=== PATIENT | male | born 1995 | race Caucasian/White ===

== ENCOUNTER → 2018-01-15 12:27 | Outpatient (POV) | payer BC, MEDICAID, SELFPAY | PROVIDERS: Family Provider Internal Medicine Adolescent Medicine; PCP Internal Medicine Adolescent Medicine; Visit Provider Nurse Practitioner Acute Care | DX: Z00.00 Encounter for general adult medical examination without abnormal findings (principal) ==

== ENCOUNTER → 2018-08-31 08:58 | Outpatient (CLI) | payer BC, MEDICAID, SELFPAY ==
[2018-08-31 09:52] LABS: Basophils % 0.5 % (0.1-2.0); Eosinophils # 0.3 K/mm3 (0.0-0.4); Eosinophils % 3.4 % (0.1-12.0); Hematocrit 45.2 % (42.0-52.0); Hemoglobin 14.1 g/dL (14.1-18.0); Lymphocytes # 1.7 K/mm3 (0.7-4.5); Lymphocytes % 22.2 % (10-50); Mean Corpuscular HGB Conc 31.3 g/dL (31.8-35.4); Mean Corpuscular Hemoglobin 28.8 pg (27.0-31.2); Mean Corpuscular Volume 92.1 fl (80-94); Monocytes # 0.4 K/mm3 (0.1-1.0); Monocytes % 5.2 % (1.7-9.3); Neutrophils # 5.4 K/mm3 (1.8-7.8); Neutrophils % 68.8 % (37.0-80.0); Platelet Count 261 K/mm3 (142-424); Red Cell Distribution Width 12.9 % (11.5-17.5); White Blood Count 7.8 K/mm3 (4.8-10.8)
[2018-08-31 11:26] LABS: Alanine Aminotransferase 54 U/L (12-78); Albumin Level 3.9 gm/dL (3.4-5.0); Albumin/Globulin Ratio 1.1 (1.1-1.8); Alkaline Phosphatase 88 U/L (46-116); Anion Gap 14.1 mEq/L (5-15); Aspartate Amino Transferase 19 U/L (15-37); Bilirubin,Total 0.2 mg/dL (0.2-1.0); Blood Urea Nitrogen 16 mg/dL (7-18); Calcium 10.8 mg/dL (8.5-10.1); Carbon Dioxide 26 mmol/L (21.0-32.0); Chloride 102 mmol/L (98-107); Creatinine,Serum 0.93 mg/dL (0.70-1.30); Estimated Glomerular Filt Rate 103 ml/min (>60); GFR (African American) 124 ML/MIN (>60); Globulin 3.4 gm/dl (1.3-3.2); Glucose 99 mg/dL (74-106); Potassium 4.1 mmoL/L (3.5-5.1); Sodium 138 mmol/L (136-145); Thyroid Stimulating Hormone 4.06 uIU/ml (0.358-3.740); Total Protein,Serum 7.3 gm/dL (6.4-8.2)
[2018-09-03 11:15] LABS: Lithium (Eskalith(R)) 0.7 mmol/L (0.6-1.2)
[2018-09-04 09:58] LABS: Testosterone, Total, LC/MS 279.2 ng/dL (264.0-916.0); Testosterone,Free 7.3 pg/mL (9.3-26.5)
== END ==
PROVIDERS: Nurse Practitioner Psychiatric/Mental Health; PCP Internal Medicine Adolescent Medicine; Visit Provider Nurse Practitioner Psychiatric/Mental Health
DX: F31.9 Bipolar disorder, unspecified (principal)
CPT/HCPCS: 36415; 80053; 80178; 84402; 84403; 84443; 85025

== ENCOUNTER → 2019-08-27 12:43 | Outpatient (CLI) | payer BC, SELFPAY ==
[2019-08-27 16:34] LABS: Alanine Aminotransferase 45 U/L (12-78); Albumin Level 4.2 gm/dL (3.4-5.0); Albumin/Globulin Ratio 1.2 (1.1-1.8); Alkaline Phosphatase 85 U/L (46-116); Aspartate Amino Transferase 21 U/L (15-37); Bilirubin,Total 0.4 mg/dL (0.2-1.0); Blood Urea Nitrogen 11 mg/dL (7-18); Calcium 9.2 mg/dL (8.5-10.1); Carbon Dioxide 26 mmol/L (21.0-32.0); Chloride 103 mmol/L (98-107); Creatinine,Serum 1.09 mg/dL (0.70-1.30); Estimated Glomerular Filt Rate 85 ml/min (>60); GFR (African American) 102 ML/MIN (>60); Globulin 3.4 gm/dl (1.3-3.2); Glucose 107 mg/dL (74-106); Sodium 139 mmol/L (136-145); Thyroid Stimulating Hormone 3.63 uIU/ml (0.358-3.740); Total Protein,Serum 7.6 gm/dL (6.4-8.2)
[2019-08-28 12:21] LABS: Lithium (Eskalith(R)) 0.8 mmol/L (0.6-1.2)
[2019-08-29 08:12] LABS: Testosterone,Free 7.4 pg/mL (9.3-26.5)
[2019-08-29 13:20] LABS: Testosterone, Total, LC/MS 189.5 ng/dL (264.0-916.0)
== END ==
PROVIDERS: Visit Provider Nurse Practitioner Psychiatric/Mental Health
DX: Z00.00 Encounter for general adult medical examination without abnormal findings (principal); F31.70 Bipolar disorder, currently in remission, most recent episode unspecified; R53.83 Other fatigue
CPT/HCPCS: 36415; 80053; 80178; 84402; 84403; 84443

== ENCOUNTER → 2019-08-27 13:38 | Outpatient (POV) | payer BC, SELFPAY | PROVIDERS: Visit Provider Dermatology | DX: Z00.00 Encounter for general adult medical examination without abnormal findings (principal) ==

== ENCOUNTER → 2019-10-22 14:04 | Outpatient (POV) | payer BC, SELFPAY | PROVIDERS: Visit Provider Dermatology | DX: Z00.00 Encounter for general adult medical examination without abnormal findings (principal) ==

== ENCOUNTER 2020-05-10 00:54 | Emergency (ER) | payer BC, SELFPAY ==
[2020-05-10 01:04] VITALS: BP 142/91; PULSE 93; RESP 20; TEMP 37.4; O2SAT 100; BMI 37.3
--- NOTE | 2020-05-10 01:16 | XR_ITS ---
PROCEDURE: XR CHEST 2V CLINICAL HISTORY: chest pain COMPARISON: No exams were available for comparison FINDINGS: The cardiomediastinal silhouette and pulmonary vascularity are within normal limits. The lungs are clear without infiltrates, suspicious nodules, or pleural effusions. No acute bony abnormalities. IMPRESSION: No acute findings. Dictated by: Dr. Tyler Ahuja MD 05/10/2020 07:[address] Tyler Ahuja MD in [place] 05/10/2020 07:49
--- NOTE | 2020-05-10 01:16 | ECG_ITS ---
APPROVED REPORT Exam: Resting ECG HR:85 bpm ECG Measurements Heart Rate [address] 176 P 40 QRSd 100 QRS 60 QT 356 T 34 QTc 423 <Conclusion> Normal sinus rhythm Possible Left atrial enlargement Borderline ECG Electronically signed by : Cody Tellez, 05/11/2020 09:07:47
[2020-05-10 01:25] LABS: Basophils # 0.1 K/mm3 (0-0.2); Basophils % 0.6 % (0.1-2.0); Eosinophils # 0.3 K/mm3 (0.0-0.4); Eosinophils % 2.4 % (0.1-12.0); Hematocrit 44.4 % (42.0-52.0); Hemoglobin 14.9 g/dL (14.1-18.0); Lymphocytes # 3.1 K/mm3 (0.7-4.5); Lymphocytes % 29.5 % (10-50); Mean Corpuscular HGB Conc 33.5 g/dL (31.8-35.4); Mean Corpuscular Hemoglobin 31.3 pg (27.0-31.2); Mean Corpuscular Volume 93.4 fl (80-94); Mean Platelet Volume 7.4 fl (7.4-10.4); Monocytes # 0.5 K/mm3 (0.1-1.0); Monocytes % 4.9 % (1.7-9.3); Neutrophils # 6.6 K/mm3 (1.8-7.8); Neutrophils % 62.7 % (37.0-80.0); Platelet Count 261 K/mm3 (142-424); Red Blood Count 4.75 M/mm3 (4.60-6.20); White Blood Count 10.5 K/mm3 (4.8-10.8)
[2020-05-10 01:29] VITALS: BP 138/87; PULSE 82; RESP 18; O2SAT 100
[2020-05-10 01:30] LABS: Alanine Aminotransferase 47 U/L (12-78); Albumin Level 4.6 g/dl (3.5-5.0); Alkaline Phosphatase 76 U/L (38-126); Anion Gap 14.7 mEq/L (5-15); Aspartate Amino Transferase 37 U/L (17-59); Bilirubin,Direct 0.1 mg/dl (0.0-0.4); Bilirubin,Indirect 0.1 mg/dL (0.0-0.9); Bilirubin,Total 0.2 mg/dl (0.2-1.3); Bilirubin,Unconjugated 0.2 mg/dL (0.0-1.1); Blood Urea Nitrogen 15 mg/dl (9-20); Calcium 9.9 mg/dl (8.4-10.2); Carbon Dioxide 28 mmol/L (22.0-30.0); Chloride 103 mmol/L (98-107); Creatinine Clearance Estimated 203 mL/min (50-200); Estimated Glomerular Filt Rate 93 ml/min (>60); GFR (African American) 112 ML/MIN (>60); Glucose 110 mg/dl (74-100); Potassium 3.7 mmoL/L (3.5-5.1); Sodium 142 mmol/L (136-145); Total Protein,Serum 8.1 g/dl (6.3-8.2)
--- NOTE | 2020-05-10 01:30 | HMH.EDCP ---
ED Disposition Clinical Impression: Atypical chest pain Disposition: Home, Self-Care Condition on Discharge: Good Instructions: DI for Atypical Chest Pain Additional Instructions: will do holter and ask pt to see pcp for follow up Referrals: Olaf Hernandez MD [Primary Care Provider] - - Critical Care Critical Care Time: No Attestation: On 05/10/20, the high probability of a clinically significant, sudden or life threatening deterioration of the following system(s) required my full and direct attention, intervention and personal management. The time I documented below is in addition to time spent performing reported procedures but includes the following listed in this critical care notation. Medical Decision Making - Medical Records Medical records reviewed: Yes: I reviewed the patient's medical records. - Gerard Inquiry Pt receiving controlled substance: No Vital Signs: 05/10/20 01:04 05/10/20 01:29 Temperature 99.4 F Temperature Source Oral Pulse Rate [Right] 93 H 82 Respiratory Rate 20 18 Blood Pressure [Right Arm] 142/91 H 138/87 Blood Pressure Mean [Right Arm] 108 104 Blood Pressure Source [Right Arm] Automatic Cuff Blood Pressure Position [Right Arm] Supine 02 Sat by Pulse Oximetry 100 100 Oxygen Delivery Method Room Air Room Air - Lab Data Lab results reviewed: Yes: I reviewed the patient's lab results. Lab Results 05/10/20 01:13: WBC 10.5, RBC 4.75, Hgb 14.9, Hct 44.4, MCV 93.4, MCH 31.3 H, MCHC 33.5, RDW 13.0, Plt Count 261, MPV 7.4, Neut % (Auto) 62.7, Lymph % (Auto) 29.5, [place] % (Auto) 4.9, Eos % (Auto) 2.4, Baso % (Auto) 0.6, Neut # (Auto) 6.6, Lymph # (Auto) 3.1, [place] # (Auto) 0.5, Eos # (Auto) 0.3, Baso # (Auto) 0.1 05/10/20 01:13: Sodium 142, Potassium 3.7, Chloride 103, Carbon Dioxide 28, Anion Gap 14.7, BUN 15, Creatinine 1.00, Estimated Creat Clear 203, Estimated GFR 93, Est GFR ( Amer) 112, Glucose 110 H, Calcium 9.9, Total Bilirubin 0.2, Direct Bilirubin 0.1, Conjugated Bilirubin 0.0, Indirect Bilirubin 0.1, Unconjugated Bilirubin 0.2, AST 37, ALT 47, Alkaline Phosphatase 76, Troponin I < 0.01, Total Protein 8.1, Albumin 4.6, Thyroxine (T4) 8.3 Result diagrams: 05/10/20 01:13 05/10/20 01:13 Orders (Tests/Meds): ED MEDICATIONS Generic Name Dose Route Start Last Admin Trade Name Freq PRN Reason Stop Dose Admin Sodium Chloride 1,000 mls @ 999 mls/hr 05/10/20 01:30 05/10/20 01:19 Sod Chlor 0.9% 1000ml Bag IV 05/10/20 02:30 999 mls/hr .Q1H1M AMANDO Administration Discontinued Medications Generic Name Dose Route Start Last Admin Trade Name Freq PRN Reason Stop Dose Admin Aspirin 324 mg 05/10/20 01:16 05/10/20 01:19 Aspirin 81mg Chewable Tablet PO 05/10/20 01:17 324 mg ONCE ONE Administration ORDERS Category Date Time Status XR chest 2V Stat Exams 05/10/20 01:16 Taken Basic Metabolic Panel Stat Lab 05/10/20 01:13 Results Liver Panel Stat Lab 05/10/20 01:13 Results T4 (Thyroxine) Stat Lab 05/10/20 01:13 Results Thyroid Stimulating Hormone Stat Lab 05/10/20 01:13 Results Troponin I Q3H Lab 05/10/20 04:30 Ordered Troponin I Q3H Lab 05/10/20 07:30 Ordered Troponin I Stat Lab 05/10/20 01:13 Results - Radiology Data #1 Image(s): Chest Image Reviewed: Yes I reviewed the patient's radiology image Preliminary Findings: Normal/NAD - ECG Data Tracing #1 Normal Sinus Rhythm: Yes Ischemic changes: non-specific ST-T wave changes Chest Pain HPI - General Chief Complaint: Chest Pain Stated Complaint: Heart Racing,HighBP; Time Seen by Provider: 05/10/20 01:15 Mode of Arrival: Ambulatory Source of Information: Patient, Medical Record Limitations: No Limitations Description of Symptoms (Recalled from ER Triage Doc. by RN): Pt states he has had on and off chest pain with diaphoresis, states he felt heart palpatations today as well. - History of Present Illness HPI narrative: ant chest pain with diaphoresi
[2020-05-10 01:43] LABS: Troponin I < 0.01 ng/ml (0.00-0.034)
[2020-05-10 01:47] LABS: T4 (Thyroxine) 8.3 ug/dl (5.53-11.0)
[2020-05-10 02:00] VITALS: BP 134/86; PULSE 87; RESP 16; O2SAT 100
[2020-05-10 02:01] LABS: Thyroid Stimulating Hormone 2.09 uIU/mL (0.465-4.68)
[2020-05-10 02:30] VITALS: BP 146/84; PULSE 92; RESP 14; TEMP 37.4; O2SAT 99
[2020-05-12 05:39] LABS: Lithium (Eskalith(R)) 0.8 mmol/L (0.6-1.2)
== END 2020-05-10 02:34 | disposition home or self-care (01) ==
PROVIDERS: Emergency Provider Emergency Medicine; PCP Internal Medicine Adolescent Medicine
DX: R07.89 Other chest pain (principal); I10 Essential (primary) hypertension; F31.9 Bipolar disorder, unspecified; Z79.899 Other long term (current) drug therapy
CPT/HCPCS: 71046; 80048; 80076; 80178; 84436; 84443; 84484; 85025; 93005; 96365; 99284

== ENCOUNTER → 2020-08-24 08:11 | Outpatient (CLI) | payer BC, SELFPAY ==
[2020-08-24 08:42] LABS: Basophils # 0.1 K/mm3 (0-0.2); Basophils % 0.5 % (0.1-2.0); Eosinophils # 0.3 K/mm3 (0.0-0.4); Eosinophils % 2.9 % (0.1-12.0); Hematocrit 48.9 % (42.0-52.0); Hemoglobin 15.9 g/dL (14.1-18.0); Lymphocytes # 3.1 K/mm3 (0.7-4.5); Lymphocytes % 32.9 % (10-50); Mean Corpuscular HGB Conc 32.5 g/dL (31.8-35.4); Mean Corpuscular Hemoglobin 30.9 pg (27.0-31.2); Monocytes # 0.4 K/mm3 (0.1-1.0); Monocytes % 4.1 % (1.7-9.3); Neutrophils # 5.6 K/mm3 (1.8-7.8); Neutrophils % 59.5 % (37.0-80.0); Platelet Count 275 K/mm3 (142-424); Red Blood Count 5.15 M/mm3 (4.60-6.20); Red Cell Distribution Width 13.1 % (11.5-17.5); White Blood Count 9.5 K/mm3 (4.8-10.8)
[2020-08-24 09:09] LABS: Chloride 102 mmol/L (98-107)
[2020-08-24 09:10] LABS: Potassium 4.5 mmoL/L (3.5-5.1); Sodium 140 mmol/L (136-145)
[2020-08-24 09:12] LABS: Alanine Aminotransferase 40 U/L (12-78); Albumin Level 4.7 g/dl (3.5-5.0); Albumin/Globulin Ratio 1.6 (1.1-1.8); Alkaline Phosphatase 58 U/L (38-126); Anion Gap 10.5 mEq/L (5-15); Aspartate Amino Transferase 32 U/L (17-59); Bilirubin,Total 0.3 mg/dl (0.2-1.3); Blood Urea Nitrogen 15 mg/dl (9-20); Carbon Dioxide 32 mmol/L (22.0-30.0); Cholesterol 201 mg/dl (140-200); Estimated Glomerular Filt Rate 105 ml/min (>60); GFR (African American) 127 ML/MIN (>60); Globulin 2.9 g/dL (1.3-3.2); Total Protein,Serum 7.6 g/dl (6.3-8.2); Triglycerides 175 mg/dl (30-150); VLDL Cholesterol 35 mg/dL (0-40)
[2020-08-24 09:13] LABS: Calcium 9.9 mg/dl (8.4-10.2); Glucose 122 mg/dl (74-100); HDL Cholesterol 40 mg/dl (40-60)
[2020-08-24 09:24] LABS: Direct LDL Cholesterol 130.86 mg/dL (100-129); Hemoglobin A1C 5.3 % (4.0-6.0)
[2020-08-24 10:02] LABS: Vitamin B12 837 pg/mL (239-931)
[2020-08-26 10:47] LABS: Lithium (Eskalith(R)) 0.8 mmol/L (0.6-1.2)
[2020-08-29 22:28] LABS: Testosterone, Total, LC/MS 190.7 ng/dL (264.0-916.0)
[2020-09-05 20:29] LABS: 1,25-Dihydroxy, Vitamin D-2 <10; 1,25-Dihydroxy, Vitamin D-3 53
== END ==
PROVIDERS: Visit Provider Nurse Practitioner Psychiatric/Mental Health
DX: E29.1 Testicular hypofunction (principal); Z00.00 Encounter for general adult medical examination without abnormal findings; F31.9 Bipolar disorder, unspecified; R53.83 Other fatigue; Z79.899 Other long term (current) drug therapy
CPT/HCPCS: 36415; 80053; 80061; 80178; 82607; 82652; 83036; 84402; 84403; 84443; 85025

== ENCOUNTER 2021-04-24 16:43 | Emergency (ER) | payer BC, SELFPAY ==
[2021-04-24 16:45] VITALS: BP 146/83; PULSE 103; RESP 20; TEMP 37.3; O2SAT 100; BMI 37.3
--- NOTE | 2021-04-24 17:09 | HMH.EDUTC ---
[facility] [place] Clinical Impression: Rash Disposition: Home, Self-Care Condition on Discharge: Good Instructions: DI for Rash Additional Instructions: No sign of a bacterial infection. Likely viral. Viruses can take 7-14 days to run their course. Monitor temp. Tylenol or Motrin as needed for pain or fever Encourage fluids, water, Gatorade, Powerade, Pedialyte if infant/toddler/child Your covid swab and strep swab was sent to lab. call for results later this evening on covid 24 hours on strep Follow-up immediately for new or worsening symptoms or no noticeable improvement over the next 48-72 hours. Prescriptions: predniSONE [Prednisone 20mg Tab] 20 mg PO BID #10 tab Transmission Status: Pending to [facility] #[id number] Referrals: Olaf Hernandez MD [Primary Care Provider] - Time of Disposition: 17:23 Medical Decision Making - Gerard Inquiry Pt receiving controlled substance: No Vital Signs: 04/24/21 16:45 Temperature 99.2 F Temperature Source Oral Pulse Rate [Left Brachial] 103 H Respiratory Rate 20 Blood Pressure [Left Arm] 146/83 H Blood Pressure Mean [Left Arm] 104 Blood Pressure Source [Left Arm] Automatic Cuff Blood Pressure Position [Left Arm] Sitting 02 Sat by Pulse Oximetry 100 Oxygen Delivery Method Room Air [facility] - General Chief complaint: Urgent [facility] Stated complaint: rash covering body Time Seen by Provider: 04/24/21 17:09 Mode of Arrival: Ambulatory Source of Information: Patient Limitations: No Limitations Description of Symptoms (Recalled from Triage Doc. by RN): PATIENT C/O RASH TO TORSO, BACK, BILATERAL ARMS AND UPPER LEGS X 1 WEEK. RASH DOES NOT ITCH OR BURN. DENIES ANY OTHER SYMPTOMS HEENT Symptoms (Recalled from RN notes): No Resp Symptoms (Recalled from RN notes): No Skin Symptoms (Recalled from RN notes): Yes MS Symptoms (Recalled from RN notes): No Functional Status (Recalled from RN notes): WNL - History of Present Illness Provider Complaint: 25 yr old male presents for reash to torso,back, juan upper arms,and upper legs for 1 week. pt states it does not itch or burn. pt denies any new meds or soaps. no new contacts known. pt denies any other symptom - Related Data Previous Rx's Medication Instructions Recorded cariprazine 6 mg capsule 6 mg PO DAILY #30 cap 02/01/21 lithium carbonate 300 mg 300 mg PO .COMPLEX #150 tab 02/01/21 tablet,extended release memantine 10 mg tablet 10 mg PO BID #60 tab 02/01/21 ziprasidone HCl 80 mg capsule 80 mg PO QPM #30 cap 02/01/21 predniSONE [Prednisone 20mg 20 mg PO BID #10 tab 04/24/21 Tab] Allergies Allergy/AdvReac Type Severity Reaction Status Date / Time No Known Allergies Allergy Verified 04/24/21 17:08 - Worker's Comp Is this a Worker's Comp case?: No [facility] History - Hepatitis A Screen Drug use history?: No High risk sexual behaviors?: No History of sexually transmitted infection?: No Currently employed?: No Childcare worker?: No Do you have indoor plumbing?: Yes Do you have electricity?: Yes Attestation statement:: This patient has been screened for Hepatitis A risk factors. I have reviewed the patient's past medical history: Yes 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: Reports:: Hypertension Denies:: Diabetes Mellitus Type 1, Diabetes Mellitus Type 2 Laterality Cases: Right: Arthroscopy Shoulder Amputation: No Fractures: No - Social History Smoking Status: Never smoker Alcohol Intake: never Occupational Status: other Family Hx:: Hypertension ROS Obtained: Yes Systems reviewed as appropriate & no additional complaints - Constitutional Constitutional: Reports system reviewed and no additional complaints, except as docu, Denies body ache, Denies fever(s) - Eyes Eyes: Reports system reviewed and no additional complaints, except as docu, Denies dry eyes - ENT Ears, Nose, Mouth, and Throat: Reports system reviewed and no additional complaints, except as docu, Denies facial pain, Kingsley
[2021-04-24 17:12] LABS: UTC Strep Screen (Rapid) Negative (Negative)
[2021-04-24 17:13] VITALS: BP 146/83; PULSE 103; RESP 20; TEMP 37.3; O2SAT 100
== END 2021-04-24 17:20 | disposition home or self-care (01) ==
PROVIDERS: Emergency Provider Nurse Practitioner Family; PCP Internal Medicine Adolescent Medicine
DX: R21 Rash and other nonspecific skin eruption (principal)
CPT/HCPCS: 87880; 99202; G0463; U0003

== ENCOUNTER → 2021-08-10 09:41 | Outpatient (CLI) | payer BC, SELFPAY ==
[2021-08-10 10:32] LABS: Hemoglobin A1C 6.9 % (4.0-6.0)
[2021-08-10 11:17] LABS: Alanine Aminotransferase 70 U/L (12-78); Albumin Level 4.5 g/dl (3.5-5.0); Albumin/Globulin Ratio 1.5 (1.1-1.8); Alkaline Phosphatase 73 U/L (38-126); Anion Gap 14.4 mEq/L (5-15); Aspartate Amino Transferase 45 U/L (17-59); Bilirubin,Total 0.5 mg/dl (0.2-1.3); Blood Urea Nitrogen 11 mg/dl (9-20); Calcium 10.4 mg/dl (8.4-10.2); Carbon Dioxide 30 mmol/L (22.0-30.0); Chloride 102 mmol/L (98-107); Estimated Glomerular Filt Rate 119 ml/min (>60); GFR (African American) 144 ML/MIN (>60); Glucose 96 mg/dl (74-100); Potassium 4.4 mmoL/L (3.5-5.1); Sodium 142 mmol/L (136-145); Total Protein,Serum 7.5 g/dl (6.3-8.2)
[2021-08-10 11:34] LABS: Free Thyroxine Index 2.4 ug/dL (5.93-13.13); T4 (Thyroxine) 8.3 ug/dl (5.53-11.0); Triiodothryronine (T3) Uptake 29 % (23.5-40.5)
[2021-08-10 11:48] LABS: Thyroid Stimulating Hormone 3.43 uIU/mL (0.465-4.68)
[2021-08-10 12:07] LABS: Vitamin B12 987 pg/mL (239-931)
[2021-08-10 18:37] LABS: Basophils # 0.2 K/mm3 (0-0.2); Basophils % 1.6 % (0.1-2.0); Eosinophils # 0.4 K/mm3 (0.0-0.4); Eosinophils % 3.3 % (0.1-12.0); Hematocrit 48.6 % (42.0-52.0); Hemoglobin 15.8 g/dL (14.1-18.0); Lymphocytes # 3.8 K/mm3 (0.7-4.5); Lymphocytes % 31.9 % (10-50); Mean Corpuscular HGB Conc 32.6 g/dL (31.8-35.4); Mean Corpuscular Hemoglobin 31.7 pg (27.0-31.2); Mean Corpuscular Volume 97.1 fl (80-94); Mean Platelet Volume 9.7 fl (7.4-10.4); Monocytes # 0.6 K/mm3 (0.1-1.0); Monocytes % 5.2 % (1.7-9.3); Neutrophils # 6.9 K/mm3 (1.8-7.8); Neutrophils % 57.9 % (37.0-80.0); Platelet Count 318 K/mm3 (142-424); Red Cell Distribution Width 13.2 % (11.5-17.5); White Blood Count 11.8 K/mm3 (4.8-10.8)
[2021-08-11 13:15] LABS: Lithium (Eskalith(R)) 0.9 mmol/L (0.5-1.2)
[2021-08-19 22:07] LABS: 1,25 Dihydroxy Vitamin D 22 pg/mL (.); 1,25-Dihydroxy, Vitamin D-2 <10 pg/mL (.); 1,25-Dihydroxy, Vitamin D-3 22 pg/mL (.)
== END ==
PROVIDERS: Visit Provider Nurse Practitioner Psychiatric/Mental Health
DX: Z00.00 Encounter for general adult medical examination without abnormal findings (principal); F31.9 Bipolar disorder, unspecified; Z79.899 Other long term (current) drug therapy
CPT/HCPCS: 36415; 80053; 80178; 82607; 82652; 83036; 84436; 84443; 84479; 85025

== ENCOUNTER → 2021-08-13 09:11 | Outpatient (CLI) | payer BC, SELFPAY ==
[2021-08-13 09:52] LABS: Basophils # 0.1 K/mm3 (0-0.2); Basophils % 0.8 % (0.1-2.0); Eosinophils # 0.4 K/mm3 (0.0-0.4); Eosinophils % 4.3 % (0.1-12.0); Hematocrit 45.7 % (42.0-52.0); Hemoglobin 15.1 g/dL (14.1-18.0); Lymphocytes # 3.2 K/mm3 (0.7-4.5); Lymphocytes % 37.8 % (10-50); Mean Corpuscular HGB Conc 32.9 g/dL (31.8-35.4); Mean Corpuscular Hemoglobin 31.6 pg (27.0-31.2); Mean Corpuscular Volume 96.1 fl (80-94); Mean Platelet Volume 8.1 fl (7.4-10.4); Monocytes # 0.4 K/mm3 (0.1-1.0); Monocytes % 5.1 % (1.7-9.3); Neutrophils # 4.5 K/mm3 (1.8-7.8); Platelet Count 313 K/mm3 (142-424); Red Blood Count 4.76 M/mm3 (4.60-6.20); Red Cell Distribution Width 13.2 % (11.5-17.5); White Blood Count 8.6 K/mm3 (4.8-10.8)
[2021-08-13 10:23] LABS: Hemoglobin A1C 5.3 % (4.0-6.0)
[2021-08-13 10:48] LABS: Chloride 103 mmol/L (98-107); Potassium 4.3 mmoL/L (3.5-5.1); Sodium 142 mmol/L (136-145)
[2021-08-13 10:51] LABS: Alanine Aminotransferase 63 U/L (12-78); Albumin Level 4.5 g/dl (3.5-5.0); Albumin/Globulin Ratio 1.7 (1.1-1.8); Alkaline Phosphatase 74 U/L (38-126); Anion Gap 16.3 mEq/L (5-15); Aspartate Amino Transferase 42 U/L (17-59); Bilirubin,Total 0.2 mg/dl (0.2-1.3); Blood Urea Nitrogen 10 mg/dl (9-20); Calcium 9.2 mg/dl (8.4-10.2); Carbon Dioxide 27 mmol/L (22.0-30.0); Chol/HDL Ratio 4.3 (1-3.5); Cholesterol 180 mg/dl (140-200); Estimated Glomerular Filt Rate 119 ml/min (>60); GFR (African American) 144 ML/MIN (>60); Globulin 2.7 g/dL (1.3-3.2); Glucose 103 mg/dl (74-100); HDL Cholesterol 42 mg/dl (40-60); Total Protein,Serum 7.2 g/dl (6.3-8.2); Triglycerides 156 mg/dl (30-150); VLDL Cholesterol 31 mg/dL (0-40)
[2021-08-13 11:05] LABS: Direct LDL Cholesterol 118.07 mg/dL (100-129)
[2021-08-13 11:30] LABS: Triiodothryronine (T3) Uptake 30 % (23.5-40.5)
[2021-08-13 11:31] LABS: Free Thyroxine Index 2.2 ug/dL (5.93-13.13); T4 (Thyroxine) 7.2 ug/dl (5.53-11.0)
[2021-08-19 13:28] LABS: Testosterone,Free 10.1 pg/mL (9.3-26.5)
== END ==
PROVIDERS: Visit Provider Internal Medicine Adolescent Medicine
DX: E29.1 Testicular hypofunction (principal); Z79.899 Other long term (current) drug therapy
CPT/HCPCS: 36415; 80053; 80061; 83036; 84402; 84403; 84436; 84443; 84479; 85025

== ENCOUNTER → 2022-02-16 09:48 | Outpatient (CLI) | payer BC, SELFPAY ==
[2022-02-16 11:04] LABS: Basophils # 0.1 K/mm3 (0-0.2); Basophils % 0.8 % (0.1-2.0); Eosinophils # 0.4 K/mm3 (0.0-0.4); Eosinophils % 3.7 % (0.1-12.0); Hematocrit 45.9 % (42.0-52.0); Lymphocytes % 19.1 % (10-50); Mean Corpuscular HGB Conc 32.7 g/dL (31.8-35.4); Mean Corpuscular Hemoglobin 32.7 pg (27.0-31.2); Mean Platelet Volume 8.1 fl (7.4-10.4); Monocytes # 0.4 K/mm3 (0.1-1.0); Monocytes % 3.6 % (1.7-9.3); Neutrophils # 7.8 K/mm3 (1.8-7.8); Neutrophils % 72.9 % (37.0-80.0); Platelet Count 323 K/mm3 (142-424); Red Blood Count 4.59 M/mm3 (4.60-6.20); Red Cell Distribution Width 13.1 % (11.5-17.5); White Blood Count 10.6 K/mm3 (4.8-10.8)
[2022-02-16 11:25] LABS: Chloride 104 mmol/L (98-107)
[2022-02-16 11:26] LABS: Potassium 4.1 mmoL/L (3.5-5.1); Sodium 139 mmol/L (136-145)
[2022-02-16 11:28] LABS: Alanine Aminotransferase 95 U/L (12-78); Alkaline Phosphatase 78 U/L (38-126); Anion Gap 7.1 mEq/L (5-15); Aspartate Amino Transferase 44 U/L (17-59); Bilirubin,Total 0.5 mg/dl (0.2-1.3); Blood Urea Nitrogen 8 mg/dl (9-20); Carbon Dioxide 32 mmol/L (22.0-30.0); Estimated Glomerular Filt Rate 91 ml/min (>60); GFR (African American) 110 ML/MIN (>60)
[2022-02-16 11:29] LABS: Albumin Level 4.2 g/dl (3.5-5.0); Albumin/Globulin Ratio 1.7 (1.1-1.8); Chol/HDL Ratio 4.7 (1-3.5); Cholesterol 160 mg/dl (140-200); Globulin 2.5 g/dL (1.3-3.2); Glucose 116 mg/dl (74-100); HDL Cholesterol 34 mg/dl (40-60); Iron 172 ug/dL (49-181); Total Protein,Serum 6.7 g/dl (6.3-8.2); Triglycerides 123 mg/dl (30-150); VLDL Cholesterol 25 mg/dL (0-40)
[2022-02-16 11:39] LABS: Total Iron Binding Capacity 258 ug/dL (261-462)
[2022-02-16 11:40] LABS: Direct LDL Cholesterol 107.55 mg/dL (100-129)
[2022-02-16 11:41] LABS: Hemoglobin A1C 5.2 % (4.0-6.0)
[2022-02-16 11:44] LABS: Free Thyroxine Index 3.3 ug/dL (5.93-13.13); T4 (Thyroxine) 10.1 ug/dl (5.53-11.0); Triiodothryronine (T3) Uptake 33 % (23.5-40.5)
[2022-02-16 11:57] LABS: Thyroid Stimulating Hormone 2.52 uIU/mL (0.465-4.68)
[2022-02-16 13:14] LABS: Vitamin B12 882 pg/mL (239-931)
[2022-02-17 12:13] LABS: Lithium (Eskalith(R)) 1.3 mmol/L (0.5-1.2)
[2022-02-23 23:23] LABS: 1,25 Dihydroxy Vitamin D 37 pg/mL (.); 1,25-Dihydroxy, Vitamin D-2 <10 pg/mL (.); 1,25-Dihydroxy, Vitamin D-3 36 pg/mL (.)
[2022-02-25 08:23] LABS: Testosterone, Total, LC/MS 291.9 ng/dL (264.0-916.0); Testosterone,Free 7.6 pg/mL (9.3-26.5)
== END ==
PROVIDERS: Visit Provider Nurse Practitioner Psychiatric/Mental Health
DX: Z00.00 Encounter for general adult medical examination without abnormal findings (principal); Z79.899 Other long term (current) drug therapy; R53.83 Other fatigue
CPT/HCPCS: 36415; 80053; 80061; 80178; 82607; 82652; 83036; 83540; 83550; 84402; 84403; 84436; 84443; 84479; 85025

== ENCOUNTER 2022-07-10 10:20 | Emergency (ER) | payer BC, SELFPAY ==
[2022-07-10 10:40] VITALS: BP 155/87; PULSE 104; RESP 22; TEMP 38.4; O2SAT 100; BMI 36.6
[2022-07-10 10:45] LABS: UTC Strep Screen (Rapid) Negative (Negative)
--- NOTE | 2022-07-10 10:54 | EXP.UTC ---
Discharge Plan Disposition Patient Disposition: Home, Self-Care Condition: Good Prescriptions Prescriptions: New promethazine-DM 6.25-15 mg/5 mL Syrup 5 ml PO Q6H PRN (Reason: Cough) Qty: 240 0RF azithromycin [Zithromax] 250 mg tablet 250 mg PO UD DOSE PK Qty: 6 0RF Rx Instructions: Take two (2) tablets today, then one (1) tablet days #2 thru #5 methylprednisolone 4 mg Tablets,Dose Pack 4 mg PO DIRECTED Qty: 21 0RF ondansetron 4 mg Tablet,Disintegrating 4 mg PO Q8H PRN (Reason: Nausea) Qty: 20 0RF No Action alprazolam [Xanax XR] 2 mg tablet extended release 24 hr 4 mg PO DAILY Qty: 60 2RF Vraylar 6 mg capsule 6 mg PO DAILY Qty: 30 2RF lithium carbonate 300 mg tablet extended release 300 mg PO .COMPLEX Qty: 90 2RF Rx Instructions: 300 mg PO take 2 tablets by mouth in the morning; and 1 tablets at bedtime; ziprasidone HCl 80 mg capsule 80 mg PO QPM Qty: 30 2RF Rx Instructions: give with food (meal/snack) triamcinolone acetonide 0.1 % cream 1 applic TOPICAL BID Qty: 30 0RF memantine [Namenda XR] 28 mg capsule,sprinkle,ER 24hr 28 mg PO DAILY Qty: 30 2RF Referrals Follow up/Referrals: Olaf Hernandez MD [Primary Care Provider] - See instructions Activity Restrictions/Add. Instructions Additional Instructions/Restrictions: Drink plenty of fluids. Take tylenol or ibuprofen for pain or fever. Take the medications as directed. Follow up with your regular doctor. GO TO THE ER FOR ANY WORSENING SYMPTOMS The cough medication (promethazine dm) will make you drowsy, so don't drive or operate heavy machinery after taking it. Clinical Impressions Clinical Impression: COVID-19, Pharyngitis Instructions Patient Instructions: Coronavirus Disease 2019, Preventing the Spread of Coronavirus Discharge Instructions Discharge ED Provider: Alok Mckeon [facility] General Stated complaint: sore throat,cough,covid positive Time Seen by Provider: 07/10/22 10:51 History of Present Illness Provider Complaint: He states that he tested positive for covid-19 4 days ago. He is here now because he has a worsening sore throat and he would like to be checked for strep throat. He still has a cough, but he states that his cough is doing better and he has no shortness of breath or chest pain. Related Data Previous Rx's Medication Instructions Recorded triamcinolone acetonide 0.1 % 1 applic topical BID #30 grams 05/08/21 topical cream alprazolam 2 mg tablet,extended 4 mg PO DAILY #60 tabs 05/09/22 release 24 hr (Xanax XR) cariprazine 6 mg capsule (Vraylar) 6 mg PO DAILY #30 caps 05/09/22 lithium carbonate 300 mg 300 mg PO .COMPLEX . #90 tabs 05/09/22 tablet,extended release ziprasidone HCl 80 mg capsule 80 mg PO QPM . #30 caps 05/09/22 memantine 28 mg capsule 28 mg PO DAILY #30 ea 06/01/22 sprinkle,extended release 24hr (Namenda XR) azithromycin 250 mg tablet 250 mg PO UD DOSE PK #6 tabs 07/10/22 (Zithromax) methylprednisolone 4 mg tablets in 4 mg PO DIRECTED #21 tabs 07/10/22 a dose pack ondansetron 4 mg disintegrating 4 mg PO Q8H PRN Nausea #20 tabs 07/10/22 tablet promethazine-DM 6.25 mg-15 mg/5 mL 5 ml PO Q6H PRN Cough #240 mL 07/10/22 oral syrup Allergies Allergy/AdvReac Type Severity Reaction Status Date / Time No Known Allergies Allergy Verified 05/09/22 09:06 [facility] 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 Anxiety Depression Hypertension Surgical History History of shoulder surgery Social History Smoking Status: Never smoker alcohol intake: never current occupational status: other Travel in the last 8 weeks: None ROS Obtained: Yes All systems reviewed & no additional complaints except as documented Constitutional Constitutional: Reports chill
[2022-07-10 11:07] VITALS: BP 155/87; PULSE 104; RESP 22; TEMP 38.4; O2SAT 100
== END 2022-07-10 11:10 | disposition home or self-care (01) ==
PROVIDERS: Emergency Provider Nurse Practitioner Family; PCP Internal Medicine Adolescent Medicine
DX: U07.1 COVID-19 (principal)
CPT/HCPCS: 87880; 99212; G0463

== ENCOUNTER → 2022-08-31 08:04 | Outpatient (CLI) | payer BC, SELFPAY ==
[2022-08-31 08:29] LABS: Basophils # 0.2 K/mm3 (0-0.2); Basophils % 1.1 % (0.1-2.0); Eosinophils # 0.3 K/mm3 (0.0-0.4); Eosinophils % 2.2 % (0.1-12.0); Hematocrit 45.6 % (42.0-52.0); Hemoglobin 14.9 g/dL (14.1-18.0); Lymphocytes # 1.9 K/mm3 (0.7-4.5); Lymphocytes % 13.2 % (10-50); Mean Corpuscular HGB Conc 32.6 g/dL (31.8-35.4); Mean Corpuscular Hemoglobin 31.9 pg (27.0-31.2); Mean Corpuscular Volume 97.8 fl (80-94); Mean Platelet Volume 8.2 fl (7.4-10.4); Monocytes # 0.5 K/mm3 (0.1-1.0); Monocytes % 3.3 % (1.7-9.3); Neutrophils # 11.5 K/mm3 (1.8-7.8); Neutrophils % 80.1 % (37.0-80.0); Platelet Count 314 K/mm3 (142-424); Red Blood Count 4.66 M/mm3 (4.60-6.20); Red Cell Distribution Width 13.8 % (11.5-17.5); White Blood Count 14.3 K/mm3 (4.8-10.8)
[2022-08-31 08:39] LABS: Hemoglobin A1C 5.1 % (4.0-6.0)
[2022-08-31 09:03] LABS: Chol/HDL Ratio 4.6 (1-3.5); Cholesterol 152 mg/dl (140-200); HDL Cholesterol 33 mg/dl (40-60); Triglycerides 105 mg/dl (30-150); VLDL Cholesterol 21 mg/dL (0-40)
[2022-08-31 09:21] LABS: Free Thyroxine Index 2.9 ug/dL (5.93-13.13); T4 (Thyroxine) 8.4 ug/dl (5.53-11.0); Triiodothryronine (T3) Uptake 34 % (23.5-40.5)
[2022-08-31 09:34] LABS: Thyroid Stimulating Hormone 1.45 uIU/mL (0.465-4.68)
[2022-08-31 09:56] LABS: Vitamin B12 938 pg/mL (239-931)
[2022-08-31 10:47] LABS: Iron 25 ug/dL (49-181)
[2022-08-31 10:56] LABS: Total Iron Binding Capacity 273 ug/dL (261-462)
[2022-09-01 08:21] LABS: Thyroid Peroxidase Antibodies <9 IU/mL (0-34)
[2022-09-01 11:13] LABS: Lithium (Eskalith(R)) 0.7 mmol/L (0.5-1.2)
[2022-09-04 03:36] LABS: Testosterone, Total, LC/MS 277.1 ng/dL (264.0-916.0)
[2022-09-10 19:09] LABS: 1,25 Dihydroxy Vitamin D 58 pg/mL (.); 1,25-Dihydroxy, Vitamin D-2 <10 pg/mL (.); 1,25-Dihydroxy, Vitamin D-3 57 pg/mL (.)
== END ==
PROVIDERS: PCP Internal Medicine Adolescent Medicine; Visit Provider Nurse Practitioner Psychiatric/Mental Health
DX: Z00.00 Encounter for general adult medical examination without abnormal findings (principal); F31.9 Bipolar disorder, unspecified; R53.83 Other fatigue; Z79.899 Other long term (current) drug therapy
CPT/HCPCS: 36415; 80061; 80178; 82607; 82652; 83036; 83540; 83550; 84402; 84403; 84436; 84443; 84479; 85025; 86376

== ENCOUNTER → 2023-01-27 09:50 | Outpatient (CLI) | payer OTHER, SELFPAY ==
[2023-01-27 10:41] LABS: Basophils % 0.5 % (0.1-2.0); Eosinophils # 0.2 K/mm3 (0.0-0.4); Eosinophils % 2.6 % (0.1-12.0); Hematocrit 48.1 % (42.0-52.0); Hemoglobin 15.4 g/dL (14.1-18.0); Lymphocytes # 1.9 K/mm3 (0.7-4.5); Mean Corpuscular HGB Conc 31.9 g/dL (31.8-35.4); Mean Corpuscular Hemoglobin 30.6 pg (27.0-31.2); Mean Corpuscular Volume 95.8 fl (80-94); Mean Platelet Volume 8.2 fl (7.4-10.4); Monocytes # 0.4 K/mm3 (0.1-1.0); Monocytes % 4.8 % (1.7-9.3); Neutrophils # 5.4 K/mm3 (1.8-7.8); Platelet Count 284 K/mm3 (142-424); Red Blood Count 5.02 M/mm3 (4.60-6.20); White Blood Count 7.9 K/mm3 (4.8-10.8)
[2023-01-27 11:05] LABS: Alanine Aminotransferase 42 U/L (12-78); Albumin Level 4.5 g/dl (3.5-5.0); Albumin/Globulin Ratio 1.7 (1.1-1.8); Alkaline Phosphatase 60 U/L (38-126); Anion Gap 8.3 mEq/L (5-15); Aspartate Amino Transferase 35 U/L (17-59); Bilirubin,Total 0.3 mg/dl (0.2-1.3); Blood Urea Nitrogen 14 mg/dl (9-20); Calcium 9.1 mg/dl (8.4-10.2); Carbon Dioxide 31 mmol/L (22.0-30.0); Chloride 103 mmol/L (98-107); Cholesterol 168 mg/dl (140-200); Estimated Glomerular Filt Rate 81 ml/min (>60); GFR (African American) 98 ML/MIN (>60); Globulin 2.6 g/dL (1.3-3.2); Glucose 108 mg/dl (74-100); HDL Cholesterol 42 mg/dl (40-60); Magnesium 2.1 mg/dl (1.6-2.3); Potassium 4.3 mmoL/L (3.5-5.1); Sodium 138 mmol/L (136-145); Total Protein,Serum 7.1 g/dl (6.3-8.2); Triglycerides 84 mg/dl (30-150); VLDL Cholesterol 17 mg/dL (0-40)
[2023-01-27 11:16] LABS: Direct LDL Cholesterol 110.34 mg/dL (100-129)
[2023-01-27 11:21] LABS: Free Thyroxine Index 2.5 ug/dL (5.93-13.13); T4 (Thyroxine) 8.2 ug/dl (5.53-11.0); Triiodothryronine (T3) Uptake 30 % (23.5-40.5)
[2023-01-27 11:28] LABS: Benzodiazepines Screen,Urine Positive ng/ml (<200)
[2023-01-27 11:29] LABS: Amphetamine/Metha Screen,Urine Negative ng/ml (<1000); Barbiturates Screen,Urine Negative ng/ml (<200)
[2023-01-27 11:30] LABS: Cannabinoid Screen,Urine Negative ng/ml (<50); Cocaine Screen,Urine Negative ng/ml (<300)
[2023-01-27 11:31] LABS: Methadone Screen,Urine Negative ng/ml (<300)
[2023-01-27 11:32] LABS: Opiate Screen,Urine Negative ng/ml (<300)
[2023-01-27 11:33] LABS: Phencyclidine Screen,Urine Negative ng/ml (<25)
[2023-01-27 11:34] LABS: Thyroid Stimulating Hormone 1.48 uIU/mL (0.465-4.68)
[2023-02-02 00:05] LABS: Testosterone, Total, LC/MS 303.8 ng/dL (264.0-916.0); Testosterone,Free 7.9 pg/mL (9.3-26.5)
== END ==
PROVIDERS: PCP Internal Medicine Adolescent Medicine; Visit Provider Nurse Practitioner Psychiatric/Mental Health
DX: Z02.83 Encounter for blood-alcohol and blood-drug test (principal); Z79.899 Other long term (current) drug therapy
CPT/HCPCS: 36415; 80053; 80061; 80305; 83735; 84402; 84403; 84436; 84443; 84479; 85025

== ENCOUNTER 2024-02-01 11:17 | Outpatient (CLI) | payer OTHER, SELFPAY ==
[2024-02-01 11:58] LABS: Basophils # 0.1 K/mm3 (0-0.2); Eosinophils # 0.2 K/mm3 (0.0-0.4); Eosinophils % 2.3 % (0.1-12.0); Hemoglobin 16.5 g/dL (14.1-18.0); Lymphocytes % 25.2 % (10-50); Mean Corpuscular HGB Conc 32.3 g/dL (31.8-35.4); Mean Corpuscular Hemoglobin 31.4 pg (27.0-31.2); Mean Corpuscular Volume 97.4 fl (80-94); Mean Platelet Volume 7.9 fl (7.4-10.4); Monocytes # 0.3 K/mm3 (0.1-1.0); Monocytes % 3.7 % (1.7-9.3); Neutrophils # 5.4 K/mm3 (1.8-7.8); Neutrophils % 67.8 % (37.0-80.0); Platelet Count 296 K/mm3 (142-424); Red Blood Count 5.24 M/mm3 (4.60-6.20); Red Cell Distribution Width 13.1 % (11.5-17.5)
[2024-02-01 12:12] LABS: Alanine Aminotransferase 37 U/L (12-78); Albumin Level 4.6 g/dl (3.5-5.0); Albumin/Globulin Ratio 1.7 (1.1-1.8); Alkaline Phosphatase 66 U/L (38-126); Anion Gap 11.9 mEq/L (5-15); Aspartate Amino Transferase 32 U/L (17-59); Bilirubin,Total 0.5 mg/dl (0.2-1.3); Blood Urea Nitrogen 13 mg/dl (9-20); Calcium 9.7 mg/dl (8.4-10.2); Carbon Dioxide 32 mmol/L (22.0-30.0); Chloride 103 mmol/L (98-107); Estimated Glomerular Filt Rate 90 ml/min (>60); GFR (African American) 108 ML/MIN (>60); Globulin 2.7 g/dL (1.3-3.2); Glucose 99 mg/dl (74-100); Potassium 4.9 mmoL/L (3.5-5.1); Sodium 142 mmol/L (136-145); Total Protein,Serum 7.3 g/dl (6.3-8.2)
[2024-02-01 12:17] LABS: Hemoglobin A1C 5.4 % (4.0-6.0)
[2024-02-01 12:29] LABS: Free Thyroxine Index 2.3 ug/dL (5.93-13.13); T4 (Thyroxine) 7.2 ug/dl (5.53-11.0); Triiodothryronine (T3) Uptake 32 % (23.5-40.5)
[2024-02-01 12:42] LABS: Thyroid Stimulating Hormone 2.16 uIU/mL (0.465-4.68)
[2024-02-01 13:02] LABS: Vitamin B12 874 pg/mL (239-931)
[2024-02-02 07:35] LABS: Lithium (Eskalith(R)) 0.4 mmol/L (0.5-1.2)
[2024-02-02 08:37] LABS: Thyroid Peroxidase Antibodies <9 IU/mL (0-34)
[2024-02-07 23:49] LABS: Free Testosterone (Direct) 12.1 pg/mL (9.3-26.5); Testosterone, Total, LC/MS 491.1 ng/dL (264.0-916.0)
[2024-02-11 16:21] LABS: 1,25 Dihydroxy Vitamin D 45 pg/mL (.); 1,25-Dihydroxy, Vitamin D-2 <10 pg/mL (.); 1,25-Dihydroxy, Vitamin D-3 44 pg/mL (.)
== END 2024-02-01 23:59 | disposition home or self-care (01) ==
LOC: LAB 11:17
PROVIDERS: PCP Internal Medicine Adolescent Medicine; Visit Provider Nurse Practitioner Psychiatric/Mental Health
DX: Z79.899 Other long term (current) drug therapy (principal); Z00.00 Encounter for general adult medical examination without abnormal findings; R53.83 Other fatigue; F31.9 Bipolar disorder, unspecified; F42.9 Obsessive-compulsive disorder, unspecified
CPT/HCPCS: 36415; 80053; 80178; 82607; 82652; 83036; 84436; 84443; 84479; 85025; 86376

== ENCOUNTER 2024-03-24 13:21 | Emergency (ER) | payer OTHER, SELFPAY ==
[2024-03-24 13:50] VITALS: BP 123/86; PULSE 85; RESP 19; TEMP 36.6; O2SAT 100; BMI 36.3
--- NOTE | 2024-03-24 14:16 | EXP.UTC ---
Discharge Plan Disposition Patient Disposition: Home, Self-Care Condition: Good Prescriptions Prescriptions: New amoxicillin 500 mg tablet 500 mg PO BID 10 Days Qty: 20 0RF [id number]-[id number]-VA 3.5-10,000-1 mg/mL-unit/mL-% drops,suspension 4 drp otic (ear) TID 7 Days Qty: 10 0RF Rx Instructions: rt ear No Action alprazolam [Xanax XR] 2 mg tablet extended release 24 hr 4 mg PO DAILY Qty: 60 2RF propranolol 10 mg tablet See Rx Instructions .ROUTE .COMPLEX Qty: 90 0RF Dose Instruction: TAKE 1 TABLET BY MOUTH THREE TIMES DAILY NEEDED. Rx Instructions: TAKE 1 TABLET BY MOUTH THREE TIMES DAILY NEEDED. ziprasidone HCl 80 mg capsule 80 mg PO QPM Qty: 30 2RF Rx Instructions: give with food (meal/snack) memantine [Namenda XR] 28 mg capsule,sprinkle,ER 24hr 28 mg PO DAILY Qty: 30 2RF Vraylar 6 mg capsule See Rx Instructions .ROUTE .COMPLEX Qty: 30 0RF Dose Instruction: TAKE 1 CAPSULE BY MOUTH DAILY Rx Instructions: TAKE 1 CAPSULE BY MOUTH DAILY lithium carbonate 300 mg tablet extended release See Rx Instructions .ROUTE .COMPLEX Qty: 90 0RF Dose Instruction: TAKE 2 TABLETS BY MOUTH IN THE MORNING AND ONE TABLET AT BEDTIME Rx Instructions: TAKE 2 TABLETS BY MOUTH IN THE MORNING AND ONE TABLET AT BEDTIME Referrals Follow up/Referrals: Olaf Hernandez MD [Primary Care Provider] - See instructions Activity Restrictions/Add. Instructions Additional Instructions/Restrictions: Start antibiotic as soon as possible and be sure to take as ordered for full length of time even though he should start feeling better in 24-48 hours. Tylenol or Motrin as needed for pain or fever Encourage fluids, water, Gatorade, Powerade, Pedialyte if /toddler/child Warm compresses often helps when placed over ear Return immediately for new or worsening symptoms no noticeable improvement in 48-72 hours and in 10-14 days to ensure the ears are return to baseline. Follow-up with primary care Clinical Impressions Clinical Impression: Otitis media, Otitis externa Instructions Patient Instructions: Middle Ear Infection, DI for Otitis Externa Discharge ED Provider: Helen ([facility])Lanette [facility] [place] H[place] General Stated complaint: right ear pain Mode of Arrival: Ambulatory Source of Information: Patient Limitations: No Limitations Time Seen by Provider: 03/24/24 14:16 Description of Symptoms (Recalled from Triage Doc. by RN): Pt's symptoms are right ear pain that radiates to jaw. HEENT Symptoms (Recalled from RN notes): Yes Resp Symptoms (Recalled from RN notes): No Skin Symptoms (Recalled from RN notes): No MS Symptoms (Recalled from RN notes): No Functional Status (Recalled from RN notes): n/a History of Present Illness Provider Complaint: 28 yr old male presents for rt ear pain that radiates into jaw Related Data Previous Rx's Medication Instructions Recorded alprazolam 2 mg tablet,extended 4 mg (2 x 2 mg) PO DAILY #60 tabs 12/29/23 release 24 hr (Xanax XR) propranolol 10 mg tablet See Rx Instructions .Route 01/01/24 .COMPLEX #90 tabs ziprasidone HCl 80 mg capsule 80 mg PO QPM . #30 caps 02/16/24 memantine 28 mg capsule 28 mg PO DAILY #30 ea 02/23/24 sprinkle,extended release 24hr (Namenda XR) cariprazine 6 mg capsule (Vraylar) See Rx Instructions .Route 02/29/24 .COMPLEX #30 caps lithium carbonate 300 mg See Rx Instructions .Route 03/18/24 tablet,extended release .COMPLEX #90 tabs amoxicillin 500 mg tablet 500 mg PO BID 10 days #20 tabs 03/24/24 souenird-zqdazelew-qsjdyehyh 3.5 4 drp otic (ear) TID 7 days #10 mL 03/24/24 mg-10,000 unit/mL-1 % ear drops,susp Allergies Allergy/AdvReac Type Severity Reaction Status Date / Time No Known Allergies Allergy Verified 03/24/24 14:15 Worker's Comp Is this a Worker's Comp case?: No [facility] Disclaimer: The information contained in this section may have been updated after the patient was seen, as this information can be updated by other users. 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) Smoking Status: Never smoker alcohol intake: never current occupational status: other Travel in the last 8 weeks: None ROS Obtained: Yes All systems reviewed & no additional complaints except as documented Constitutional Constitutional: Reports system reviewed and no additional complaints, except as documented Eyes Eyes: Reports system reviewed and no additional complaints, except as documented ENT Ears, Nose, Mouth, and Throat: Reports system reviewed and no additional complaints, except as documented, Reports as per HPI and Reports otalgia Cardiovascular Cardiovascular: Reports system reviewed and no additional complaints, except as documented Respiratory Respiratory: Reports system reviewed and no additional complaints, except as documented Musculoskeletal Musculoskeletal: Reports system reviewed and no additional complaints, except as documented Integumentary/Breasts Skin/Breast: Reports system reviewed and no additional complaints, except as documented Neurologic Neurologic: Reports system reviewed and no additional complaints, except as documented Endocrine Endocrine: Reports system reviewed and no additional complaints, except as documented Allergic/Immunologic Allergic/Immunologic: Reports system reviewed and no additional complaints, except as documented Physical Exam General General appearance: alert and in no apparent distress Head Head exam: atraumatic Eye Eye exam: Present normal appearance and PERRL Expanded ENT Exam TM/Canal exam: Left TM: canal tenderness (canal red) and Right TM: erythema, bulging and loss of landmarks Respiratory Respiratory exam: Present normal lung sounds bilaterally Cardiovascular Cardiovascular exam: Present regular rate and normal rhythm Neurological Exam Neurological exam: Present alert and oriented X3 Skin Skin exam: Present warm and intact Medical Decision Making Medical Records Medical records reviewed: Yes I reviewed the patient's medical records. Gerard Inquiry Pt receiving controlled substance: No Gerard was queried for this patient: No Vital Signs: 03/24/24 13:50 Temperature 97.9 F Temperature Source Oral Pulse Rate [Right Radial] 85 Respiratory Rate 19 Blood Pressure [Right Arm] 123/86 Blood Pressure Mean [Right Arm] 98 Blood Pressure Source [Right Arm] Automatic Cuff Blood Pressure Position [Right Arm] Sitting 02 Sat by Pulse Oximetry 100 Oxygen Delivery Method Room Air
[2024-03-24 14:23] VITALS: BP 123/86; PULSE 85; RESP 19; TEMP 36.6; O2SAT 100
== END 2024-03-24 14:27 | disposition home or self-care (01) ==
PROVIDERS: Emergency Provider Nurse Practitioner Family; PCP Internal Medicine Adolescent Medicine
DX: H66.91 Otitis media, unspecified, right ear (principal); H60.91 Unspecified otitis externa, right ear; H92.01 Otalgia, right ear
CPT/HCPCS: 99212; 99214; G0463

== ENCOUNTER 2024-08-15 12:06 | Emergency (ER) | payer OTHER, SELFPAY ==
[2024-08-15 12:22] VITALS: BP 126/78; PULSE 90; RESP 18; TEMP 37.5; O2SAT 95; BMI 37.7
--- NOTE | 2024-08-15 12:41 | ED_ITS ---
Discharge Plan Disposition Patient Disposition: Home, Self-Care Condition: Good Prescriptions Prescriptions: New dextromethorphan polistirex [Delsym 12 hour] 30 mg/5 mL suspension,extended rel 12 hr 10 ml PO Q12H PRN (Reason: cough) Qty: 89 0RF guaifenesin [Mucinex] 600 mg tablet extended release 12hr 1,200 mg PO BID PRN (Reason: cough) Qty: 20 0RF azithromycin [Zithromax Z-Sarkis] 250 mg tablet See Rx Instructions .ROUTE .COMPLEX 5 Days Qty: 6 0RF Rx Instructions: For 250 mg dose pack: take 500 mg today (day 1), then 250 mg for 4 days (days 2-5) prednisone 20 mg tablet 20 mg PO BID 5 Days Qty: 10 0RF No Action propranolol 60 mg capsule,extended release 24 hr 60 mg PO DAILY Qty: 30 2RF alprazolam [Xanax XR] 2 mg tablet extended release 24 hr 4 mg PO DAILY Qty: 60 2RF Vraylar 6 mg capsule See Rx Instructions .ROUTE .COMPLEX Qty: 30 3RF Dose Instruction: TAKE 1 CAPSULE BY MOUTH DAILY Rx Instructions: TAKE 1 CAPSULE BY MOUTH DAILY lithium carbonate 300 mg tablet extended release See Rx Instructions .ROUTE .COMPLEX Qty: 90 2RF Dose Instruction: TAKE 2 TABLETS BY MOUTH ONCE DAILY IN THE MORNING AND 1 TABLET AT BEDTIME Rx Instructions: TAKE 2 TABLETS BY MOUTH ONCE DAILY IN THE MORNING AND 1 TABLET AT BEDTIME ziprasidone HCl 80 mg capsule See Rx Instructions .ROUTE .COMPLEX Qty: 30 3RF Dose Instruction: TAKE 1 CAPSULE BY MOUTH EVERY EVENING WITH FOOD Rx Instructions: TAKE 1 CAPSULE BY MOUTH EVERY EVENING WITH FOOD memantine 28 mg capsule,sprinkle,ER 24hr See Rx Instructions .ROUTE .COMPLEX Qty: 30 0RF Dose Instruction: TAKE 1 CAPSULE BY MOUTH DAILY Rx Instructions: TAKE 1 CAPSULE BY MOUTH DAILY Referrals Follow up/Referrals: Olaf Hernandez MD [Primary Care Provider] - See instructions Activity Restrictions/Add. Instructions Additional Instructions/Restrictions: * Start antibiotic today. Be sure to complete entire prescription even if feeling better * Monitor temp. Tylenol every 4 hours as needed and / or ibuprofen every 6 hours as needed ( As long as your primary care physician has told you that it ok to take both. For fever/aches/pains ER if no less than 101 despite Tylenol or Motrin * Humidifier/vaporizer or hot steamy shower * Mucinex during the day for your cough and cough suppressant only at night. Be sure to drink lots of water. *Start steroid today. Helps with inflammation therefore, cough and wheezing. Follow directions on the package. Reviewed side effects. Patient reports taking them before. Follow up IMMEDIATELY for new or worsening of symptoms OR no noticeable improvement over the next 48-72 hours. 911 immediately for any life threatening symptoms such as chest pain or difficulty breathing Clinical Impressions Clinical Impression: Bronchitis Sinusitis Qualifiers: Sinusitis location: unspecified location Chronicity: unspecified Qualified Code(s): J32.9 - Chronic sinusitis, unspecified Instructions Patient Instructions: DI for Sinusitis, Acute Bronchitis Print Language Print Language: Portuguese Discharge ED Provider: [place] Huitron [facility] [place] General Stated complaint: cough, headache, vomiting Mode of Arrival: Ambulatory Source of Information: Patient Time Seen by Provider: 08/15/24 12:42 Description of Symptoms (Recalled from Triage Doc. by RN): COUGH, VOMITING, ALMAZAN, FEVER HEENT Symptoms (Recalled from RN notes): Yes Resp Symptoms (Recalled from RN notes): Yes Skin Symptoms (Recalled from RN notes): No MS Symptoms (Recalled from RN notes): No Functional Status (Recalled from RN notes): WNL History of Present Illness Provider Complaint: Patient states that he hasnt felt well for about a week States he has been having sinus congestion, drainage, cough, sore scratchy throat, chest congestion and over all not feeling well States today he was still not feeling well so he came in to get checked recently had pneumonia Related Data Previous Rx's ?Medication ?Instructions ?Recorded alprazolam 2 mg tablet,extended 4 mg (2 x 2 mg) PO DAILY #60 tabs 06/24/24 release 24 hr (Xanax XR) cariprazine 6 mg capsule (Vraylar) See Rx Instructions .Route 06/24/24 .COMPLEX #30 caps lithium carbonate 300 mg See Rx Instructions .Route 06/24/24 tablet,extended release .COMPLEX #90 tabs propranolol 60 mg capsule,24 60 mg PO DAILY #30 caps 06/24/24 hr,extended release ziprasidone HCl 80 mg capsule See Rx Instructions .Route 06/24/24 .COMPLEX #30 caps memantine 28 mg capsule See Rx Instructions .Route 07/24/24 sprinkle,extended release 24hr .COMPLEX #30 caps azithromycin 250 mg tablet See Rx Instructions PO .COMPLEX 5 08/15/24 (Zithromax Z-Sarkis) days #6 tabs dextromethorphan polistirex 30 10 ml PO Q12H PRN cough #89 mL 08/15/24 mg/5 mL oral susp ext.release 12hr (Delsym 12 hour) guaifenesin 600 mg tablet, 1,200 mg (2 x 600 mg) PO BID PRN 08/15/24 extended release 12 hr (Mucinex) cough #20 tabs prednisone 20 mg tablet 20 mg PO BID 5 days #10 tabs 08/15/24 Allergies Allergy/AdvReac Type Severity Reaction Status Date / Time No Known Allergies Allergy Verified 07/05/24 09:40 Worker's Comp Is this a Worker's Comp case?: No PFS PFS Disclaimer: The information contained in this section may have been updated after the patient was seen, as this information can be updated by other users. 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 , [employer]) Obsessive-compulsive disorder Depression Anxiety Hypertension Surgical History , [employer]) History of shoulder surgery Social History , [employer]) Smoking Status: Never smoker alcohol intake: never current occupational status: other Travel in the last 8 weeks: None ROS Obtained: Yes All systems reviewed & no additional complaints except as documented and Yes Systems reviewed as appropriate & no additional complaints except as documented Constitutional Constitutional: Reports system reviewed and no additional complaints, except as documented and Reports as per HPI ENT Ears, Nose, Mouth, and Throat: Reports system reviewed and no additional complaints, except as documented, Reports as per HPI, Reports sinus pain and Reports sinus pressure Cardiovascular Cardiovascular: Reports system reviewed and no additional complaints, except as documented, Reports as per HPI and Denies dyspnea on exertion Respiratory Respiratory: Reports system reviewed and no additional complaints, except as documented, Reports as per HPI, Reports chest congestion, Reports cough and Denies dyspnea on exertion Gastrointestinal Gastrointestingal: Reports system reviewed and no additional complaints, except as documented and as per HPI Genitourinary Male Genitourinary: Reports system reviewed and no additional complaints, except as documented and Reports as per HPI Physical Exam General General appearance: alert and in no apparent distress ENT ENT exam: Present mucous membranes moist Expanded ENT Exam Nose exam: Present sinus tenderness (sounds congested when talking PND noted) Throat exam: Present other (Pharyngeal erythema noted with PND) Respiratory Respiratory exam: Present normal lung sounds bilaterally; Absent respiratory distress or wheezes Cardiovascular Cardiovascular exam: Present regular rate, normal rhythm and normal heart sounds Neurological Exam Neurological exam: Present alert, oriented X3 and normal gait Medical Decision Making Medical Records Screening: Per USPSTF and CDC recommendations, given the prevalence of disease in our region, it is our hospital?s policy to screen for HIV and viral Hepatitis for all patients aged 18 and over and those with ongoing risk factors. Gerard Inquiry Pt receiving controlled substance: No Gerard was queried for this patient: No Vital Signs: 08/15/24 12:22 Temperature 99.5 F Temperature Source Oral Pulse Rate [Left Radial] 90 Respiratory Rate 18 Blood Pressure [Left Arm] 126/78 Blood Pressure Mean [Left Arm] 94 02 Sat by Pulse Oximetry 95 Lab Data Lab results reviewed: Yes I reviewed the patient's lab results. Medical Decision Narrative: medications discussed with pharmacy
[2024-08-15 12:44] LABS: UTC Strep Screen (Rapid) Negative (Negative)
[2024-08-15 12:45] LABS: UTC Influenza A Antigen Negative (Negative); UTC Influenza B Antigen Negative (Negative)
[2024-08-15 12:59] VITALS: BP 126/78; PULSE 90; RESP 18; TEMP 37.5
== END 2024-08-15 13:01 | disposition home or self-care (01) ==
PROVIDERS: Emergency Provider Nurse Practitioner; PCP Internal Medicine Adolescent Medicine
DX: J40 Bronchitis, not specified as acute or chronic (principal)
CPT/HCPCS: 87804; 87880; 99213; G0381

== ENCOUNTER 2024-12-13 10:56 | Outpatient (CLI) | payer OTHER, SELFPAY ==
[2024-12-13 17:27] LABS: Basophils # 0.1 K/mm3 (0-0.2); Basophils % 0.7 % (0.1-2.0); Eosinophils # 0.3 K/mm3 (0.0-0.4); Eosinophils % 4.7 % (0.1-12.0); Hematocrit 49.4 % (42.0-52.0); Hemoglobin 16.5 g/dL (14.1-18.0); Lymphocytes # 2.1 K/mm3 (0.7-4.5); Lymphocytes % 29.6 % (10-50); Mean Corpuscular HGB Conc 33.4 g/dL (31.8-35.4); Mean Corpuscular Hemoglobin 31.4 pg (27.0-31.2); Mean Corpuscular Volume 93.9 fl (80-94); Mean Platelet Volume 10.3 fl (7.4-10.4); Monocytes # 0.4 K/mm3 (0.1-1.0); Monocytes % 5.9 % (1.7-9.3); Neutrophils # 4.1 K/mm3 (1.8-7.8); Platelet Count 261 K/mm3 (142-424); Red Blood Count 5.26 M/mm3 (4.60-6.20); Red Cell Distribution Width 11.9 % (11.5-17.5)
[2024-12-13 17:59] LABS: Alanine Aminotransferase 42 U/L (12-78); Albumin Level 5.1 g/dl (3.5-5.0); Albumin/Globulin Ratio 2.2 (1.1-1.8); Alkaline Phosphatase 57 U/L (38-126); Anion Gap 12.7 mEq/L (5-15); Aspartate Amino Transferase 33 U/L (17-59); Bilirubin,Total 0.3 mg/dl (0.2-1.3); Blood Urea Nitrogen 13 mg/dl (9-20); Calcium 9.6 mg/dl (8.4-10.2); Carbon Dioxide 29 mmol/L (22.0-30.0); Chloride 103 mmol/L (98-107); Estimated Glomerular Filt Rate 100 ml/min (>60); GFR (African American) 122 ML/MIN (>60); Globulin 2.3 g/dL (1.3-3.2); Glucose 82 mg/dl (74-100); Iron 101 ug/dL (49-181); Potassium 4.7 mmoL/L (3.5-5.1); Sodium 140 mmol/L (136-145); Total Protein,Serum 7.4 g/dl (6.3-8.2)
[2024-12-13 18:25] LABS: Free Thyroxine Index 2.8 ug/dL (5.93-13.13); T4 (Thyroxine) 8.3 ug/dl (5.53-11.0); Triiodothryronine (T3) Uptake 34 % (23.5-40.5)
[2024-12-13 18:38] LABS: Thyroid Stimulating Hormone 1.27 uIU/mL (0.465-4.68)
[2024-12-13 18:52] LABS: Vitamin B12 900 pg/mL (239-931)
[2024-12-13 19:37] LABS: Hemoglobin A1C 5.5 % (4.0-6.0)
[2024-12-13 20:55] LABS: Total Iron Binding Capacity 350 ug/dL (261-462)
[2024-12-25 11:44] LABS: Testosterone, Total, LC/MS 300.6 ng/dl (264.0-916.0)
[2024-12-25 11:45] LABS: Free Testosterone (Direct) 7.8 pg/mL (7.2-24.0); Thyroid Peroxidase Antibodies 10
[2024-12-25 11:46] LABS: Lithium (Eskalith(R)) 0.3
[2024-12-30 10:38] LABS: 1,25 Dihydroxy Vitamin D 56; 1,25-Dihydroxy, Vitamin D-2 <10; 1,25-Dihydroxy, Vitamin D-3 55
== END 2024-12-13 23:59 | disposition home or self-care (01) ==
LOC: LAB.DROPOF 12-16 10:58
PROVIDERS: PCP Internal Medicine Adolescent Medicine; Visit Provider Nurse Practitioner Psychiatric/Mental Health
DX: Z00.00 Encounter for general adult medical examination without abnormal findings (principal); R53.83 Other fatigue; F31.9 Bipolar disorder, unspecified; Z79.899 Other long term (current) drug therapy
CPT/HCPCS: 80053; 80178; 82607; 82652; 83036; 83540; 83550; 84402; 84403; 84436; 84443; 84479; 85025; 86376

== ENCOUNTER 2025-08-06 09:53 | Outpatient (CLI) | payer OTHER, SELFPAY ==
[2025-08-06 10:49] LABS: Chloride 101 mmol/L (98-107); Potassium 4.8 mmoL/L (3.5-5.1); Sodium 141 mmol/L (136-145)
[2025-08-06 10:52] LABS: Anion Gap 11.8 mEq/L (5-15); Blood Urea Nitrogen 11 mg/dl (9-20); Calcium 9.0 mg/dl (8.4-10.2); Carbon Dioxide 33 mmol/L (22.0-30.0); Creatinine,Serum 1.00 mg/dl (0.66-1.25); Estimated Glomerular Filt Rate 89 ml/min (>60); GFR (African American) 108 ML/MIN (>60); Glucose 110 mg/dl (74-100)
[2025-08-06 11:17] LABS: Hemoglobin A1C 5.3 % (4.0-6.0)
== END 2025-08-06 23:59 | disposition home or self-care (01) ==
LOC: LAB 09:54
PROVIDERS: PCP Internal Medicine Adolescent Medicine
DX: Z79.899 Other long term (current) drug therapy (principal)
CPT/HCPCS: 36415; 80048; 80178; 83036